=== PATIENT | male | born 1985 | race African-American/Black ===

== ENCOUNTER 2020-04-28 00:18 | Emergency (ER) | payer SELFPAY ==
[~2020-04-28] VITALS: Ht 185.4 cm; Wt 86.2 kg
[2020-04-28 00:25] VITALS: BP 115/71
--- NOTE | 2020-04-28 00:30 | Emergency Room Report ---
History of Present Illness General Chief Complaint: General Complaint Source: Patient, EMS Present Illness HPI This is a 34-year-old male with unknown past medical history. He is homeless. He called 911 with chief plane of feeling sick. He is not cooperative. He is very sleepy. Denies any fever or chills. No nausea no vomiting. He just told me that he felt dizzy. Denies any other complaint. History is very limited because he is not cooperative and is sleepy. Allergies: Coded Allergies: No Known Allergies (Unverified , 04/28/20) COVID-19 Screening Contact w/high risk pt: No Experienced COVID-19 symptoms?: No COVID-19 Testing performed FUR EXAMINER: No Patient History Past Medical History: see triage record, old chart reviewed Past Surgical History: unable to obtain Pertinent Family History: unable to obtain Immunizations: other Reviewed Nursing Documentation: PMH: Agreed; PSxH: Agreed Review of Systems Constitutional: Reports: weakness All Other Systems: limited - Patient is not cooperative Physical Exam Vital Signs Date Time Temp Pulse Resp B/P (MAP) Pulse Ox O2 Delivery O2 Flow Rate FiO2 04/28/20 00:17 98.1 94 16 115/71 (86) 99 Room Air Vitals normal Sp02 EP Interpretation: reviewed, normal General Appearance: well appearing, no apparent distress, alert Head: normocephalic, atraumatic Eyes: bilateral eye PERRL, bilateral eye EOMI ENT: hearing grossly normal, normal pharynx Neck: full range of motion, supple, no meningismus Respiratory: chest non-tender, lungs clear, normal breath sounds Cardiovascular #1: regular rate, rhythm, no murmur Gastrointestinal: normal bowel sounds, non tender, no mass, no organomegaly, no bruit, non-distended Musculoskeletal: back normal, normal range of motion Neurologic: grossly normal Psychiatric: other - Very sleepy Medical Decision Making Homeless Attestation I, The treating physician, Dr Jesus Hilliard, has assessed and agrees that patient is medically stable for discharge to an outpatient disposition. Diagnostic Impression: Primary Impression: Substance abuse ER Course Patient presents with vague symptoms. He is not cooperative here. He is very sleepy. He would get agitated when nursing staff try to put an IV in him. He refused to give a urine sample. CT scans negative for any bleed or intracranial injury. Labs unremarkable. Will discharge home in the morning. No evidence of any infection. CT/MRI/US Diagnostic Results CT/MRI/US Diagnostic Results : Imaging Test Ordered: CT head Impression Negative per radiologist Last Vital Signs Date Time Temp Pulse Resp B/P (MAP) Pulse Ox O2 Delivery O2 Flow Rate FiO2 04/28/20 00:17 98.1 94 16 115/71 (86) 99 Room Air Status: improved Disposition: HOME, SELF-CARE Condition: Stable Additional Instructions: Abstain from drugs. Follow-up with your doctor in 7 days. Return if worse. Jesus Hilliard MD Apr 28, 2020 00:30
[2020-04-28 01:13] LABS: BASOPHILS % (AUTO) 0.6 % (0.0-2.0); EOSINOPHILS % (AUTO) 0.8 % (0.0-3.0); HEMATOCRIT 45.7 % (42.0-52.0); HEMOGLOBIN 14.4 G/DL (14.2-18.0); LYMPHOCYTES % (AUTO) 12.4 % (20.0-45.0); MEAN CORPUSCULAR VOLUME 78 FL (80-99); MONOCYTES % (AUTO) 8.1 % (1.0-10.0); NEUTROPHILS % (AUTO) 78.1 % (45.0-75.0); PLATELET COUNT 183 K/UL (150-450); RED CELL DISTRIBUTION WIDTH 15.4 % (11.6-14.8); WHITE BLOOD COUNT 9.5 K/UL (4.8-10.8)
[2020-04-28 01:28] LABS: ANION GAP 6 mmol/L (5-15); BLOOD UREA NITROGEN 17 mg/dL (7-18); CALCIUM 8.7 MG/DL (8.5-10.1); CARBON DIOXIDE 30 MMOL/L (21-32); CHLORIDE 106 MMOL/L (98-107); CREATININE 1.6 MG/DL (0.55-1.30); SODIUM 142 MMOL/L (136-145)
[2020-04-28 01:39] LABS: ALANINE AMINOTRANSFERASE 38 U/L (12-78); ALBUMIN 3.7 G/DL (3.4-5.0); ALKALINE PHOSPHATASE 84 U/L (46-116); ASPARTATE AMINO TRANSFERASE 29 U/L (15-37); BILIRUBIN,TOTAL 1.3 MG/DL (0.2-1.0)
[2020-04-28 01:47] LABS: BILIRUBIN,DIRECT 0.3 MG/DL (0.0-0.3)
--- NOTE | 2020-04-28 02:10 | Diagnostic Imaging Report ---
EXAM: CT Head Without Intravenous Contrast CLINICAL HISTORY: DIZZY TECHNIQUE: Axial computed tomography images of the head/brain without intravenous contrast. CTDI is 53.40 mGy and DLP is 1259.20 mGy-cm. One or more of the following dose reduction techniques were used: automated exposure control, adjustment of the mA and/or kV according to patient size, use of iterative reconstruction technique. COMPARISON: No relevant prior studies available. FINDINGS: Brain: No hemorrhage or mass effect. Ventricles: No hydrocephalus. Bones/joints: Unremarkable. Soft tissues: Unremarkable. Sinuses: Unremarkable. Mastoid air cells: Clear. IMPRESSION: No acute hemorrhage, hydrocephalus, or mass effect.
[2020-04-28 05:50] VITALS: BP 128/78
== END 2020-04-28 06:00 | disposition home or self-care (01) ==
LOC: EDBD 00:18 → EMR 00:35
DX: F19.10 Other psychoactive substance abuse, uncomplicated (principal); Z59.0 Homelessness
CPT/HCPCS: 36415; 70450; 80053; 82248; 85025; 96360; 99284; G0480; J7030